=== PATIENT | female | born 1980 | race Caucasian/White ===

== ENCOUNTER 2016-11-05 14:47 | Inpatient (IN) ==
[2016-11-05] MEDS ORDERED: ZOFRAN IV PRN (15:50)
[2016-11-05 16:08] LABS: BASO% 0.8 % (0.0-0.8); EOS% 3.9 % (0.0-10.0); HEMATOCRIT 38.9 % (37.0-47.0); HEMOGLOBIN 13.3 g/dL (12.0-16.0); LYMPH# 1.82 X1000 (1.2-3.4); LYMPH% 35.2 % (20.5-51.1); MANUAL DIFF NEEDED? NO; MCH 31.7 PG (27-31); MCHC 34.2 g/dL (33-37); MCV 92.8 FL (81-99); MONO# 0.42 X1000 (0.11-0.59); MONO% 8.1 % (1.7-9.3); MPV 9.4 FL (7.4-10.4); PLT 278 X1000 (130-400); RBC 4.19 XMIL (4.2-5.4)
[2016-11-05 16:20] LABS: URINE MICRO REVIEW NEEDED? NO; URINE SOURCE CLEAN CATCH
[2016-11-05 16:25] LABS: BILIRUBIN URINE NEGATIVE (NEGATIVE); BLOOD URINE NEGATIVE (NEGATIVE); COLOR YELLOW; GLUCOSE URINE NEGATIVE (NEGATIVE); LEUKOCYTES URINE NEGATIVE (NEGATIVE); NITRITE URINE NEGATIVE (NEGATIVE); PROTEIN URINE TRACE mg/dL (NEGATIVE); SP GRAVITY URINE 1.018; TURBIDITY URINE CLEAR (CLEAR); UROBILINOGEN URINE NORMAL (NORMAL)
[2016-11-05 16:26] LABS: UR EPITHELIAL CELLS <10 /HPF (<10); URINE BACTERIA NEGATIVE /HPF; URINE RBC <10 /HPF (<10); URINE WBC <10 /HPF (<10)
[2016-11-05 16:37] LABS: AGAP 13; ALBUMIN 4.5 g/dL (3.5-5.0); ALKALINE PHOSPHATASE 51 U/L (32-104); AMYLASE 53 U/L (20-200); BUN 8 mg/dL (8-22); CALCIUM 9.3 mg/dL (8.8-10.2); CHLORIDE 100 mmol/L (98-107); COSMO 272; GOT 17 U/L (10-30); GPT 14 U/L (10-36); LIPASE 53 U/L (13-60); MAGNESIUM 2.1 mg/dL (1.5-2.7); POTASSIUM 4.2 mmol/L (3.5-5.1); SODIUM 137 mmol/L (136-145); TCO2 24 mmol/L (25-35); TOTAL BILIRUBIN 0.77 mg/dL (0.20-1.00); TOTAL PROTEIN 6.9 g/dL (6.3-8.3)
[2016-11-05] MEDS: NS 1,000 ML IV SCH (18:38)
--- NOTE | 2016-11-05 19:51 | Diag Imaging Result Document ---
PROCEDURE NAME: FLAT/UPRIGHT ABD/1 VIEW CHEST - 11/05/2016 STUDY: Plain radiograph of the chest and abdomen, 3 views. COMPARISON: 10/22/2016. FINDINGS: There are unremarkable bowel gas and stool patterns. There is no evidence of bowel obstruction. There is no evidence of large volume free abdominal gas. There is no discrete organomegaly. The lungs are grossly clear. The cardiomediastinal silhouette and upper airway are grossly unremarkable. IMPRESSION: No evidence of acute chest or abdominal pathology.
[2016-11-05] MEDS: SYMBICORT 160/4.5 MICROGM INHALER INH SCH (20:00)
[2016-11-05] MEDS: SINGULAIR PO SCH (21:19)
[2016-11-05] MEDS: KEPPRA PO SCH (21:19)
[2016-11-05] MEDS: ZOLOFT PO SCH (21:19)
[2016-11-05] MEDS: ZANTAC PO SCH (21:19)
--- NOTE | 2016-11-05 22:00 | HISTORY AND PHYSICAL ---
CHIEF COMPLAINT: Constipation. HISTORY OF PRESENT ILLNESS: This 36-year-old white female has an incredibly complex medical history, of which I am sure I only scratch the surface. 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 I was contacted by the patient's father, Dr. Aubrey Shah early in the day. The patient has been having difficulty with abdominal pain which is crampy in nature. She has difficulty with bowel elimination but has had very little if any output in that regard for nearly a month. She is followed for by Dr. Champion for bowel motility and other abdominal difficulty. Dr. Shah visited his daughter in [place] yesterday and brought 2 L of fluid since she was unable to eat or drink and had been nauseated and vomiting and was very weak. She had 2 L of fluid yesterday into this morning and this seemed to help to strengthen her. She still did not have any bowel output. I believe they tried some form of an enema at home but were unsuccessful in any type of significant elimination. Because of the severity of the patient's problem, her parents canceled an upcoming trip with a [employer] [place] in order to bring her back to [place] to be admitted and seen. PAST MEDICAL HISTORY: 1. Multiple orthopedic problems and orthopedic surgeries likely due to Jesica-Danlos syndrome. 2. Light sensitivity. 3. Mydriasis. 4. Asthma and postinfectious cough possibly related to a ongoing mast cell activation disorder. 5. Chronic insomnia. 6. Depression. 7. Dysautonomia with hypotension. PAST SURGICAL HISTORY: 1. As stated earlier, multiple orthopedic procedures including right knee hardware removal, right hip labral repair. 2. In 2013 a supracervical hysterectomy. ALLERGIES: THE PATIENT HAS MULTIPLE MEDICATION ALLERGIES INCLUDING TRIMETHOPRIM/SULFA DRUGS, DILAUDID, LYRICA, TEGADERM, ADHESIVE TAPE, FENTANYL AND LASIX. PRESENT MEDICATIONS: 1. Fludrocortisone 0.1 mg p.o. daily. 2. Propranolol 10 mg t.i.d. 3. Salt and potassium tablets as well as salt and potassium solutions. 4. Remeron 30 mg p.o. at bedtime. 5. Klonopin 1-2 mg p.o. at bedtime. 6. Zoloft 150 mg at bedtime. 7. Marinol 2.5 mg 5 times a day. 8. Gabapentin 300 mg p.o. t.i.d. 9. Trileptal. 10. Symbicort 160/4.5 two puffs b.i.d. 11. Montelukast sodium 10 mg p.o. daily. 12. Xopenex 45 mg metered dose inhaler p.r.n. 13. Zyrtec 10 mg p.o. t.i.d. 14. Hydroxyzine 25 mg 1-2 p.o. q.4 hours. 15. Pataday 1 drop each eye. 16. nasal solution b.i.d. 17. QVAR 2 puffs each nostril b.i.d. 18. Ranitidine 150 mg p.o. b.i.d. 19. NasalCrom 2 sprays each nostril. 20. Xolair 300 mg every 4 weeks. 21. Valacyclovir 500 mg p.o. at bedtime p.r.n. flares. 22. Keppra 500 mg p.o. at bedtime. 23. Rizatriptan 10 mg p.o. q.2 hours p.r.n. headache. REVIEW OF SYSTEMS: Please see history of present illness. The patient denies any ongoing cough, wheezing or worsening shortness of breath associated with her asthma or frequent bronchitis episodes. She has not had any chest pain or palpitations. There has been no evidence or report or seizure disorder. She has no genitourinary complaints. PHYSICAL EXAMINATION: GENERAL: She is a thin white female who is alert, oriented and in no distress. She is very helpful and informative about her history and physical findings. HEENT: The conjunctiva are of reasonable coloration. Oral mucosa appears to be adequately hydrated. Normal coloration. NECK: There are no carotid bruits or JVD. LUNGS: Clear to auscultation in all lisa. CARDIOVASCULAR: Shows a regular rhythm with a minor click consistent with mitral valve prolapse. ABDOMEN: Bowel sounds are very scarce. Percussion reveals a general dullness throughout. Her abdomen is scaphoid. Palpation is difficult because the patient blanches when I touch her abdomen. She appears to have diffuse mild tenderness without evidence of anything suggestive of a surgical abdomen. EXTREMITIES: Show no peripheral edema. NEUROLOGICALLY: The patient appears to be intact. PSYCHOLOGICALLY: Normal. LABORATORIES: White cell count is 5.17, hematocrit 38.9. Serum electrolytes are normal. Bicarb is slightly low at 24, creatinine 0.7. TSH is 1.3. Liver function tests, amylase and lipase were all normal. Urinalysis is generally negative with the exception of slight ketones. ASSESSMENT AND PLAN: 1. The patient will be admitted to the hospital. She will be administered IV fluids, pain and nausea medication as needed. We would like to avoid narcotics given her poor bowel function. 2. I will plan to administer a tap water enema tonight. We have also consulted Dr. Goncalves for this weekend as the patient may require some type of scoping procedure. 3. The patient's KUB was read as grossly normal but appears to me she has stool throughout her colon with very little air space present. I believe that our subspecialists in GI will be able to help us with whether the use of any cathartic laxatives in conjunction with enema may be of assistance here. 4. Since I am basically keeping the patient NPO for the present time I am going to try and pare down her medications to a bare minimum that will preserve her from a mental status and anxiety standpoint and also from a dysautonomia standpoint.
[2016-11-06] MEDS: BENADRYL IV PRN (02:41)
[2016-11-06] MEDS: SYMBICORT 160/4.5 MICROGM INHALER INH SCH ×2 (07:30→20:17)
[2016-11-06] MEDS: D5 1/2 NS 1,000 ML IV SCH ×2 (07:35→15:59)
[2016-11-06] MEDS: ZANTAC PO SCH ×2 (08:42→19:57)
[2016-11-06] MEDS: INDERAL PO PRN (08:42)
[2016-11-06] MEDS: KEPPRA PO SCH ×2 (08:42→19:55)
[2016-11-06] MEDS: FLORINEF PO SCH (08:43)
--- NOTE | 2016-11-06 09:28 | PROGRESS NOTE ---
DATE: 11/06/2016 SUBJECTIVE: The patient had a rough night with an allergic reaction to her IV site. We gave her some Benadryl and convinced her to keep that in. She stated that she would like to have her Klonopin for nighttime use. Although she did not have any solid stool output from her enema yesterday, she did state that the liquid that came out was darker. She does feel like she has bowel sounds and bowel activity, although it is not very robust. She states that she is hungry and wants to eat some Rice Chex that she brought her and I have no objection. OBJECTIVE: Vital Signs: 97.9, 80, 18, 111/83. Physical Examination: General: She is a thin, white female in no acute distress. She is alert, oriented, conversive, and appropriate. Cardiovascular: Regular without appreciable murmur or gallop. There is a click consistent with mitral valve prolapse. Abdomen: Scaphoid. Bowel sounds are present, albeit scant. She is generally nontender. ASSESSMENT AND PLAN: 1. We will try another soapsuds enema today. I will add MiraLAX and Senokot to her regimen. I will allow her to eat Rice Chex. 2. Her fluids have been changed over to D5 half normal. 3. Consultation with Dr. Goncalves is today.
[2016-11-06] MEDS ORDERED: CALMOSEPTINE OINTMENT TOP PRN (12:22)
[2016-11-06] MEDS: PERICOLACE PO SCH (12:36)
[2016-11-06] MEDS: MIRALAX PO SCH (12:36)
[2016-11-06] MEDS: NS 1,000 ML IV SCH ×2 (16:00→16:02)
[2016-11-06] MEDS: ZOLOFT PO SCH (19:55)
[2016-11-06] MEDS: MARINOL PO SCH (19:55)
[2016-11-06] MEDS: KLONOPIN PO SCH ×2 (19:57→23:55)
[2016-11-06] MEDS: SINGULAIR PO SCH (19:57)
[2016-11-06] MEDS: REGLAN PO SCH (20:10)
[2016-11-06] MEDS: OFIRMEV 1000 MG/ISOTONIC SOLN 100 ML IV PRN (20:11)
[2016-11-07] MEDS: INDERAL PO PRN ×2 (00:41→21:21)
[2016-11-07] MEDS: SYMBICORT 160/4.5 MICROGM INHALER INH SCH ×2 (07:17→23:27)
[2016-11-07] MEDS: D5 1/2 NS 1,000 ML IV SCH ×4 (07:38→21:27)
[2016-11-07] MEDS: MARINOL PO SCH ×7 (07:38→21:23)
[2016-11-07] MEDS: ZOLOFT PO SCH ×2 (07:47→21:17)
[2016-11-07] MEDS: SINGULAIR PO SCH ×2 (07:47→21:18)
[2016-11-07] MEDS: KEPPRA PO SCH ×3 (07:47→21:18)
[2016-11-07] MEDS: ZANTAC PO SCH ×3 (07:47→21:18)
[2016-11-07] MEDS: REGLAN PO SCH ×4 (07:59→21:18)
[2016-11-07] MEDS: OFIRMEV 1000 MG/ISOTONIC SOLN 100 ML IV PRN (07:59)
[2016-11-07] MEDS ORDERED: D5 1/2 NS 1,000 ML IV SCH ×2 (09:12→11:35)
[2016-11-07] MEDS ORDERED: CITRATE OF MAGNESIA PO ONE ×2 (09:13→18:19)
[2016-11-07] MEDS: LINZESS PO SCH (10:07)
[2016-11-07] MEDS: FLORINEF PO SCH (10:08)
[2016-11-07] MEDS: MIRALAX PO SCH (10:08)
[2016-11-07] MEDS: PERICOLACE PO SCH (10:08)
--- NOTE | 2016-11-07 11:34 | PROGRESS NOTE ---
DATE: 11/07/2016 SUBJECTIVE: The patient is currently sitting in bed, in no acute distress. She complains of nausea. She is able to keep liquids down and yesterday she was started on diet and was able to keep it down. She has been on laxatives with incomplete relief. PHYSICAL EXAMINATION: Vital Signs: Temperature of 98 degrees, pulse rate of 74 , respiratory rate of 16, blood pressure 118/78, saturating 99% on room air. Body weight of 131 pounds 4.8 ounces. BMI of 20.6 kg/m2 . General Appearance: Thinly built, sitting in bed, in no acute distress. HEENT: No pallor. No icterus. Pupils equal on both sides. Neck: Supple. Abdomen: Soft, nontender, nondistended. Bowel sounds are present but hypoactive. No guarding. No rebound. Extremities: No cyanosis, clubbing, and edema. Neurologic: She is alert, awake, oriented x3. LABS: Hemoglobin and hematocrit are 13.3 and 38.9, white count of 5.17, platelet count of 278,000. Sodium 137, potassium 4.2, chloride 100, bicarb of 24, anion gap of 13 , BUN of 8, creatinine 0.7, glucose of 89, calcium is 9.3, phosphorus 4.2, magnesium 2.1. Total bilirubin is 0.77, AST 17, ALT 14, alkaline phosphatase 151, total protein 6.9, albumin of 4.5, amylase of 53, lipase 53. Urine has trace protein and some ketones. Abdominal x-ray done, read by Dr. Sam Alcaraz, suggests no evidence of acute chest or abdominal pathology. No bowel obstruction noted. IMPRESSION AND PLAN: 1. Jesica-Danlos syndrome, dysautonomia, light sensitivity, mydriasis, asthma, questionable mast cell activation disorder, insomnia, depression, postural orthostatic tachycardia syndrome. She is currently being followed by Dr. 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 She will continue to follow up with the specialty clinics as before. 2. Nausea. We will start with small frequent meals and gradually advance. She has been put on Reglan over the weekend. We will hold Reglan for any side effects like tardive dyskinesia. 3. She is on Marinol to help with her appetite which she also used as an outpatient. We will continue with that. 4. Constipation, right-sided, incomplete relief with MiraLAX and Colace at home so here, she was started on Linzess and Jennifer-Colace and continuing with MiraLAX once daily. Today, she has been given 1 dose of magnesium titrate per Dr. Rocha. We will evaluate the response. If she continues to have an incomplete relief, we will suggest 1 gallon of GoLYTELY and further workup like colonoscopy in the near future. The above plan of care was discussed with patient and her family at bedside. All questions were answered. [facility]
[2016-11-07] MEDS ORDERED: ATIVAN ONE (19:21)
[2016-11-07] MEDS ORDERED: ATIVAN IV ONE (19:22)
[2016-11-07] MEDS: KLONOPIN PO SCH (21:18)
[2016-11-08] MEDS: MARINOL PO SCH ×5 (04:57→20:20)
[2016-11-08 06:25] LABS: AGAP 10; BUN 3 mg/dL (8-22); CALCIUM 8.8 mg/dL (8.8-10.2); CHLORIDE 105 mmol/L (98-107); COSMO 277; MAGNESIUM 2.2 mg/dL (1.5-2.7); POTASSIUM 4.5 mmol/L (3.5-5.1); SODIUM 141 mmol/L (136-145); TCO2 26 mmol/L (25-35)
[2016-11-08] MEDS: LINZESS PO SCH (07:27)
[2016-11-08] MEDS: REGLAN PO SCH (07:27)
[2016-11-08] MEDS: INDERAL PO PRN ×2 (07:34→14:10)
[2016-11-08] MEDS: SYMBICORT 160/4.5 MICROGM INHALER INH SCH ×2 (07:48→19:12)
[2016-11-08] MEDS ORDERED: ATIVAN IV PRN (08:46)
[2016-11-08] MEDS ORDERED: CITRATE OF MAGNESIA PO ONE (08:48)
[2016-11-08] MEDS: ZANTAC PO SCH ×2 (08:57→22:36)
[2016-11-08] MEDS: MIRALAX PO SCH (08:57)
[2016-11-08] MEDS: KEPPRA PO SCH ×2 (08:57→22:36)
[2016-11-08] MEDS: FLORINEF PO SCH (08:57)
[2016-11-08] MEDS: PERICOLACE PO SCH (08:57)
[2016-11-08] MEDS: D5 LR 1,000 ML IV SCH ×2 (10:42→22:48)
[2016-11-08] MEDS: NEURONTIN PO SCH (20:20)
[2016-11-08] MEDS: TRILEPTAL PO SCH (22:36)
[2016-11-08] MEDS: ZOLOFT PO SCH (22:36)
[2016-11-08] MEDS: KLONOPIN PO SCH (22:36)
[2016-11-08] MEDS: SINGULAIR PO SCH (22:37)
[2016-11-08] MEDS: REMERON PO SCH (22:37)
[2016-11-08] MEDS: BENADRYL IV PRN (22:42)
[2016-11-09] MEDS: MARINOL PO SCH ×4 (03:32→22:20)
[2016-11-09] MEDS: LINZESS PO SCH (07:39)
[2016-11-09] MEDS: KEPPRA PO SCH ×2 (08:21→22:21)
[2016-11-09] MEDS: D5 LR 1,000 ML IV SCH ×2 (08:21→22:21)
[2016-11-09] MEDS: PERICOLACE PO SCH (08:21)
[2016-11-09] MEDS: TRILEPTAL PO SCH ×2 (08:22→22:19)
[2016-11-09] MEDS: ZANTAC PO SCH ×2 (08:22→22:21)
[2016-11-09] MEDS: FLORINEF PO SCH (08:22)
[2016-11-09] MEDS: MIRALAX PO SCH (08:22)
[2016-11-09] MEDS: NEURONTIN PO SCH ×3 (08:22→17:32)
[2016-11-09] MEDS ORDERED: GOLYTELY PO ONE (10:44)
[2016-11-09] MEDS ORDERED: TYLENOL PO PRN (10:45)
--- NOTE | 2016-11-09 16:25 | PROGRESS NOTE ---
DATE: 11/09/2016 SUBJECTIVE: Patient is currently comfortable in her room. She is moving her bowels. Also starting her GoLYTELY. She is able to eat 75% of meal this morning. We are planning to schedule for EGD and colonoscopy tomorrow.Vital signs: Temperature 97.7 degrees, pulse rate 69, respiratory rate 20, blood pressure 120/78, saturating 98% on room air. General: Moderately nourished in no acute distress. HEENT: No pallor. No icterus. Neck: Supple. Abdomen: Soft, nontender, nondistended. Bowel sounds are no guarding. Extremities: No cyanosis, clubbing, edema. Neurologic: She is alert, awake, oriented. LAB: Her sodium 140, potassium 4.5, chloride 105, bicarb 26, anion gap of 10. BUN of 3, creatinine 0.7, glucose of 92, calcium is 8.8, magnesium 2.2. Normal liver enzymes. IMPRESSION AND PLAN: 1. Jesica-Danlos syndrome, dysautonomia, light sensitivity, mydriasis, asthma, questionable mast cell activation disorder, insomnia, depression, postural orthostatic tachycardia syndrome. She currently is following up with [facility] at [facility] and an paper sheeter in [place] and with Dr. Rocha. 2. Nausea which is improving as she is moving her bowels. We will schedule for EGD tomorrow to evaluate for any kind of pyloric stenosis or peptic ulcer disease. 3. Constipation. She has already been begun on bowel prep. She will finish her bowel prep tonight and she will be on clear liquid diet today. She will be made NPO past midnight and schedule for a colonoscopy tomorrow morning. 4. The above plan discussed with the patient and the family as well. All questions were answered.
[2016-11-09] MEDS: SYMBICORT 160/4.5 MICROGM INHALER INH SCH ×2 (16:49→19:53)
[2016-11-09] MEDS: REMERON PO SCH (22:19)
[2016-11-09] MEDS: ZOLOFT PO SCH (22:20)
[2016-11-09] MEDS: KLONOPIN PO SCH (22:20)
[2016-11-09] MEDS: SINGULAIR PO SCH (22:21)
[2016-11-09] MEDS: INDERAL PO PRN (22:53)
[2016-11-10] MEDS: MARINOL PO SCH ×3 (03:36→13:36)
[2016-11-10] MEDS: LINZESS PO SCH (06:10)
[2016-11-10] MEDS: SYMBICORT 160/4.5 MICROGM INHALER INH SCH (07:57)
[2016-11-10] MEDS ORDERED: MYLICON DROPS (DOSE) MISC ONE (08:49)
[2016-11-10] MEDS ORDERED: DIPRIVAN 1% ONE (09:21)
[2016-11-10] MEDS ORDERED: XYLOCAINE-MPF 2% ONE (09:29)
[2016-11-10] MEDS ORDERED: LR 1,000 ML ONE (09:29)
[2016-11-10] MEDS: FLORINEF PO SCH (10:55)
[2016-11-10] MEDS: NEURONTIN PO SCH ×2 (10:55→13:36)
[2016-11-10] MEDS: KEPPRA PO SCH (10:55)
[2016-11-10] MEDS: TRILEPTAL PO SCH (10:55)
[2016-11-10] MEDS: PERICOLACE PO SCH (10:55)
[2016-11-10] MEDS: ZANTAC PO SCH (10:56)
[2016-11-10 11:36] VITALS: BP 111/67
[2016-11-10] MEDS: MIRALAX PO SCH (13:36)
--- NOTE | 2016-11-11 11:39 | DISCHARGE SUMMARY ---
ADMISSION DATE: 11/05/2016 DISCHARGE DATE: 11/10/2016 FINAL DIAGNOSES: 1. Severe constipation. 2. Irritable bowel, constipation predominant. 3. History of autonomic neuropathy. 4. Moderate intermittent asthma. PRESENT ILLNESS: Ms. Nora Shah is a 36-year-old woman who presented to the [facility] with a history of no bowel movement for approximately 1 month. She had recently been referred to Dr. Champion for what she felt might be gastroparesis. Her constipation had not responded to multiple [id number] laxatives and enemas at home. PHYSICAL EXAMINATION: General: Revealed an alert, thin, young female who was cooperative, in no distress. HEENT: Unremarkable with moist mucous membranes. No icterus. Neck: Supple with no JVD. Lungs: Clear. Cardiac: Regular rhythm. No murmurs. Possible midsystolic click. Abdomen: Bowel sounds were very rare. Generally had dullness to percussion. There was perhaps some mild diffuse tenderness. Extremities: No edema. DATABASE: White blood count 5200, hematocrit 39%, electrolytes essentially normal. Creatinine 0.7. TSH 1.3. Amylase, lipase, liver function tests normal. HOSPITAL COURSE: The patient was admitted with suspected fecal impaction. Abdominal obstructive series had been read as unremarkable but the colon was fairly obvious filled with stool past the mid transverse colon. She was admitted and treated with IV fluids and oral rehydration. The patient feels she is gluten intolerant and mainly eats Rice Chex cereal. She was seen in consultation by Dr. Champion and his associate Dr. Goncalves. It was felt that a prolonged bowel prep would be needed. Eventually this was accomplished and earlier this morning, she had a colonoscopy and upper GI examination. The full report/dictation is pending but, she had mild gastritis and stool throughout the ascending and transverse colon which was lavaged. Dr. Champion recommended Linzess and MiraLAX. She is discharged in improved condition and is to return to his office in 2-3 weeks and to my office in a similar time frame. DISCHARGE MEDICATIONS: Numerous and listed in the discharge paperwork.
--- NOTE | 2016-11-11 11:48 | OPERATIVE NOTE ---
PROCEDURE DATE: 11/10/2016 REQUESTING PHYSICIAN: Irving Rocha MD PROCEDURE: 1. Esophagogastroduodenoscopy with biopsy. 2. Ileocolonoscopy. PREOPERATIVE DIAGNOSES: 1. Nausea. 2. Decreased p.o. intake. 3. Constipation. 4. Jesica-Danlos syndrome. 5. ??Mast cell activation disorder. 6. Dysautonomia. POSTOPERATIVE DIAGNOSES: 1. Normal esophagus, Z-line was at 40 cm. 2. Mild gastritis of the body and antrum, status post biopsy to evaluate to evaluate for Helicobacter pylori. Normal fundus, cardia, incisura. 3. Normal duodenal bulb, second and third portion duodenum. 4. Normal terminal ileum. 5. Stool in the ascending colon and transverse colon, which was lavaged. 6. Normal colon otherwise internal hemorrhoids grade 1 on retroflexion. 7. No evidence of any colitis or obstruction noted. ESTIMATED BLOOD LOSS: Minimal. COMPLICATIONS: None. ANESTHESIA: Monitored anesthesia care per the anesthesiologist. SPECIMEN: Gastric random biopsy sent. DESCRIPTION OF PROCEDURE: After informed consent from the patient and explained the risks, benefits, indications, alternatives to procedure, the patient prepared for EGD and colonoscopy. The patient was brought to the OR. She was turned to the left lateral position , a bite block was placed in patient's mouth. After adequate monitored anesthesia care, the upper scope was gently introduced to the oral vestibule all the way to the third portion of duodenum. The esophagus normal in the proximal and middle 3rd. Distal esophagus showed some mild erythema. The Z-line visualized at 40 cm. The scope entered the stomach with evidence of mild erythema in the body and antrum suggesting mild gastritis, this was biopsied to evaluate for H. pylori. Retroflexion in the stomach revealed normal fundus, cardia, incisura. There was no evidence of any pyloric stenosis. The scope was advanced into the duodenum, which revealed normal mucosa, duodenal bulb, second and third portion of duodenum. The scope was withdrawn into the stomach. The air was aspirated as the scope was withdrawn. The patient was then turned around. Rectal exam was performed, which revealed normal rectal tone. No masses were felt. No blood on the examining finger. The colonoscope was introduced and was traversed all the way to the terminal ileum. The terminal ileum was normal. There was evidence of solid stool in the ascending colon and the transverse colon, this was lavaged. The rest of the colon had no stool. We did not visualize any evidence of any obstruction or colitis. Retroflexion in the rectum revealed internal hemorrhoids grade 1. The air aspirated as the scope was withdrawn. The patient tolerated the procedure, is currently monitored in the OR in stable condition. I discussed the findings with the patient's family and all questions were answered. RECOMMENDATIONS: 1. The patient will be on Zantac twice daily for 4-6 weeks and then can be cut down to once daily. 2. Patient will follow gastroesophageal reflux lifestyle changes. Avoid excessive tea, coffee, soda, tomatoes, onions, spicy foods. 3. Patient will increase fiber intake to 30 grams in 24 hours . 4. We will continue patient on Linzess 290 mcg in the morning and use MiraLAX 17 -34g (mixed in 16 oz of water) at bedtime based on her symptoms. 5. 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 6. The patient will be resumed on regular diet today. 7. The patient will follow up with me in the clinic in 4 weeks of discharge to review the biopsy results. [facility]
== END 2016-11-10 14:18 | disposition home or self-care (01) | DRG 392 ==
LOC: ED 14:47 → 4N 14:48
PROVIDERS: ADMIT Internal Medicine; ATTEND Internal Medicine
PROC: 0DB68ZX Excision of Stomach, Via Natural or Artificial Opening Endoscopic, Diagnostic (ICD-10-PCS; principal; 2016-11-10 08:30)
PROC: 0DJD8ZZ Inspection of Lower Intestinal Tract, Via Natural or Artificial Opening Endoscopic (ICD-10-PCS; 2016-11-10 08:30)
DX: K58.1 Irritable bowel syndrome with constipation (principal); D89.40 Mast cell activation, unspecified; D80.1 Nonfamilial hypogammaglobulinemia; Q79.6 Ehlers-Danlos syndromes; G62.9 Polyneuropathy, unspecified; N31.9 Neuromuscular dysfunction of bladder, unspecified; H57.04 Mydriasis; J45.909 Unspecified asthma, uncomplicated; G90.1 Familial dysautonomia [Riley-Day]; G47.00 Insomnia, unspecified; F32.9 Major depressive disorder, single episode, unspecified; I34.1 Nonrheumatic mitral (valve) prolapse; T78.49XA Other allergy, initial encounter; F43.10 Post-traumatic stress disorder, unspecified; K29.50 Unspecified chronic gastritis without bleeding; J45.20 Mild intermittent asthma, uncomplicated; K64.0 First degree hemorrhoids; Z79.51 Long term (current) use of inhaled steroids; Z79.52 Long term (current) use of systemic steroids; Z79.899 Other long term (current) drug therapy
CPT/HCPCS: 36415; 74022; 80048; 80053; 81001; 82150; 83690; 83735; 84100; 84443; 85025; 88305; 88312; 94761; 99285; J0131; J1200; J2060; J7030; J7120; J7121; 94640-76